=== PATIENT | female | born 1960 | race Caucasian/White ===

== ENCOUNTER 2020-03-31 11:42 | Inpatient (IN) | payer BC, MEDICAID ==
[~2020-03-31] VITALS: Ht 165.1 cm; Wt 52.6 kg
--- NOTE | 2020-03-31 11:45 | NUR ---
PT BIBRA FROM HOME C/O SOB THIS MORNING, PT IS AAOX3, NOTED RESPIRATORY DISTRESS O2 SAT AT 84% ON RA PER EMS, UPON ARRIVAL PT IS ON NB MASK SAT ON 98%, HOOKED TO POULTRY HATCHERY MANAGER, KEPT RESTED AND COMFORTABLE, WILL CONTINUE TO MONITOR.
--- NOTE | 2020-03-31 11:50 | NUR ---
SEEN AND EXAMINED BY .
--- NOTE | 2020-03-31 11:53 | NUR ---
RT AT BEDSIDE FOR ABG.
--- NOTE | 2020-03-31 11:55 | NUR ---
IV LINE ESTABLISHED BLOOD DRAWN AND SENT TO LAB.
--- NOTE | 2020-03-31 12:07 | NUR ---
COVID SWAB OBTAINED AND SENT TO LAB.
[2020-03-31 12:37] LABS: BASOPHILS % (AUTO) 0.6 % (0.0-2.0); EOSINOPHILS % (AUTO) 0.1 % (0.0-6.0); HEMATOCRIT 50 % (33-45); HEMOGLOBIN 16.8 g/dL (11.5-14.8); LYMPHOCYTES % (AUTO) 27.7 % (20.0-44.0); MEAN CORPUSCULAR HGB CONC 34 g/dl (31.0-36.0); MEAN CORPUSCULAR VOLUME 96 fL (82-100); MONOCYTES # (AUTO) 0.4 /CMM (0.1-1.30); MONOCYTES % (AUTO) 5.2 % (2.0-12.0); NEUTROPHILS # (AUTO) 4.8 /CMM (1.8-8.9); NEUTROPHILS % (AUTO) 66.4 % (43.0-81.0); PLATELET COUNT (AUTO) 149 /CMM (150-450); RED BLOOD CELL COUNT(AUTO) 5.18 MIL/uL (4.0-5.2); WHITE BLOOD COUNT (AUTO) 7.2 K/uL (4.3-11.0)
[2020-03-31 12:39] LABS: CALCIUM, SERUM 7.9 mg/dL (8.5-10.1); CARBON DIOXIDE 27 mmol/L (21-32); CHLORIDE 100 mmol/L (98-107); CREATININE 0.7 mg/dL (0.6-1.3); GLUCOSE 91 mg/dL (74-106); POTASSIUM 3.9 mmol/L (3.5-5.1); SODIUM SERUM 138 mmol/L (136-145); UREA NITROGEN, BLOOD 7 mg/dL (7-18)
[2020-03-31 12:50] LABS: ALANINE AMINOTRANSFERASE 48 U/L (12-78); ALBUMIN 3.4 g/dL (3.4-5.0); ALKALINE PHOSPHATASE 176 U/L (46-116); ASPARTATE AMINOTRANSFERASE 105 U/L (15-37); B-TYPE NATRIURETIC PEPTIDE 50 PG/ML (0-125); BILIRUBIN,TOTAL 0.6 mg/dL (0.2-1.0); TOTAL PROTEIN, SERUM 8.4 g/dL (6.4-8.2)
--- NOTE | 2020-03-31 12:56 | NUR ---
GOT BED 109
[2020-03-31] MEDS ORDERED: CEFEPIME 1 GM in IV D5W 50 ML IV ONE (13:00)
[2020-03-31] MEDS ORDERED: VANCOMYCIN 1 GM in IV D5W 250 ML IV ONE (13:00)
[2020-03-31 13:01] LABS: C-REACTIVE PROTEIN 0.4 mg/dL (0.0-0.9); CREATINE KINASE, TOTAL 72 U/L (26-192); FERRITIN 253 ng/mL (8-388)
[2020-03-31] MEDS ORDERED: Magnesium 1GM/D5W 100ML PREMIX 100 ML IV STA (13:09)
[2020-03-31] MEDS ORDERED: methylPREDNISolone SOD SUCC 125 MG/2ML VIAL IV ONE (13:30)
[2020-03-31] MEDS ORDERED: ALBUTEROL SULFATE 8 GM HFA.AER.AD IH STA (13:35)
[2020-03-31] MEDS ORDERED: methylPREDNISolone SOD SUCC 125 MG/2ML VIAL ONE (13:52)
[2020-03-31] MEDS ORDERED: Magnesium 1GM/D5W 100ML PREMIX 100 ML IV ONE (13:52)
--- NOTE | 2020-03-31 14:32 | NUR ---
REPORT GIVEN TO FELICIA PATEL FOR RADHA.
[2020-03-31 15:00] LABS: D-DIMER 1.9 mg/L(FEU (0.17-0.50)
--- NOTE | 2020-03-31 15:00 | NUR ---
tx to floor via [place] by gely johnson and china emt
[2020-03-31 15:13] LABS: BILIRUBIN,DIRECT 0.2 mg/dL (0.0-0.2)
--- NOTE | 2020-03-31 15:15 | NUR ---
pt received in room 109 in stable condition, wearing a mask. room air sat high 80s. placed on 4L via NC, 94%, no acute distress. respiration unlabored but tachypneic. pt also appears very anxious. a/ox4. skin warm dry. abd soft nontender, reports diarrhea. reports generalized body aches. bilateral pedal pulses 2+. placed on tele monitoring. oriented to room and call light. updated pt on plan of care and isolation procedures. bed locked in lowest position with HOB elevated. pt ambulated to restroom with steady gait.
--- NOTE | 2020-03-31 15:16 | NUR ---
pt reports loss of taste for 1 month, cough and malaise for 1 month, and recent unexplained bruising on her knees. she reports she has been drinking 1 bottle of wine per night. she is shaky and anxious.
[2020-03-31 16:00] VITALS: BP 161/78
[2020-03-31] MEDS ORDERED: LORAZEPAM 0.5 MG TABLET PO PRN (16:30)
[2020-03-31] MEDS ORDERED: methylPREDNISolone SOD SUCC 125 MG/2ML VIAL IV SCH (16:30)
[2020-03-31] MEDS ORDERED: HYDROXYCHLOROQUINE 200 MG TABLET PO SCH (17:00)
[2020-03-31] MEDS: LORAZEPAM 1 MG TABLET PO PRN ×2 (17:52→22:44)
[2020-03-31] MEDS: IPRATROPIUM BROMIDE 14 GM INHALER (or 12.9 GM) IH SCH ×2 (17:53→23:44)
[2020-03-31] MEDS: busPIRone 5 MG TABLET PO SCH (17:53)
[2020-03-31] MEDS: LEVOFLOXACIN (500MG) 500 MG TABLET PO SCH (17:53)
[2020-03-31] MEDS: NICOTINE PATCH (21MG) 21 MG PATCH.TD24 TD SCH (17:53)
--- NOTE | 2020-03-31 18:11 | NUR ---
pt reinforced in plan of care. ativan administered for anxiety and withdrawal prevention. ate 50% of dinner.
--- NOTE | 2020-03-31 19:06 | NUR ---
SALES FORECAST ANALYST: RECEIVED PATIENT Patient in bed, awake, appears anxious. Sinus rhythm in the Tele monitor, 97% on 4L NC, denies SOB. Contact/Droplet isolation, pending Covid-19 result. Maintained safety.
[2020-03-31 20:00] VITALS: BP 155/82
[2020-03-31 20:20] VITALS: BP 155/82
[2020-03-31] MEDS: methylPREDNISolone SOD SUCC 125 MG/2ML VIAL IV SCH (21:07)
[2020-03-31] MEDS: TRAZODONE 50 MG TABLET PO SCH (21:07)
[2020-03-31] MEDS: ALBUTEROL FS 2.5 MG/3 ML VIAL.NEB NEB SCH (23:50)
[2020-04-01] VITALS (9 sets, daily range): BP systolic 136–147; BP diastolic 74–89
[2020-04-01] MEDS: LORAZEPAM 1 MG TABLET PO PRN ×3 (05:40→19:56)
[2020-04-01] MEDS: methylPREDNISolone SOD SUCC 125 MG/2ML VIAL IV SCH ×3 (05:40→20:33)
--- NOTE | 2020-04-01 06:05 | NUR ---
PARKING REGULATION ENFORCEMENT OFFICER: END OF SHIFT REPORT Patient in bed, Oxygen sat 99% on 4L NC, intermittent coughing, denies SOB. PO Antibiotic as scheduled, afebrile overnight. Sinus rhythm in the Tele monitor. Anxiety managed with PRN Ativan. Contact/Droplet isolation. Fall precaution maintained. Will endorse to oncoming RN.
[2020-04-01 06:28] LABS: BASOPHILS % (AUTO) 0.1 % (0.0-2.0); EOSINOPHILS % (AUTO) 0.6 % (0.0-6.0); HEMATOCRIT 46 % (33-45); HEMOGLOBIN 15.3 g/dL (11.5-14.8); LYMPHOCYTES # (AUTO) 0.4 /CMM (0.8-4.8); LYMPHOCYTES % (AUTO) 13.8 % (20.0-44.0); MEAN CORPUSCULAR HGB CONC 33 g/dl (31.0-36.0); MEAN CORPUSCULAR VOLUME 98 fL (82-100); MONOCYTES # (AUTO) 0.1 /CMM (0.1-1.30); MONOCYTES % (AUTO) 3.7 % (2.0-12.0); NEUTROPHILS # (AUTO) 2.3 /CMM (1.8-8.9); NEUTROPHILS % (AUTO) 81.8 % (43.0-81.0); PLATELET COUNT (AUTO) 103 /CMM (150-450); RED BLOOD CELL COUNT(AUTO) 4.72 MIL/uL (4.0-5.2); WHITE BLOOD COUNT (AUTO) 2.8 K/uL (4.3-11.0)
[2020-04-01 06:44] LABS: CALCIUM, SERUM 8.4 mg/dL (8.5-10.1); CREATININE 0.7 mg/dL (0.6-1.3); POTASSIUM 4.3 mmol/L (3.5-5.1)
--- NOTE | 2020-04-01 07:15 | NUR ---
DIRECTOR REPORT OPENING NOTE Received patient asleep comfortably in bed no signs of distress. On NC 4L tolerating well. HOB elevated. Tele reading SR. Has LFA 20g. Pedning result for Covid. Safety measures reinforced. Call light within reach. Bed locked and on lowest. Will cont to monitor.
[2020-04-01] MEDS: busPIRone 5 MG TABLET PO SCH ×3 (08:19→16:29)
[2020-04-01] MEDS: NICOTINE PATCH (21MG) 21 MG PATCH.TD24 TD SCH (08:19)
[2020-04-01 08:31] LABS: C-REACTIVE PROTEIN 0.5 mg/dL (0.0-0.9)
[2020-04-01] MEDS: ALBUTEROL FS 2.5 MG/3 ML VIAL.NEB NEB SCH ×2 (08:49→15:13)
[2020-04-01] MEDS: IPRATROPIUM BROMIDE 14 GM INHALER (or 12.9 GM) IH SCH ×2 (08:49→15:13)
[2020-04-01] MEDS ORDERED: THIAMINE HCL 100 MG TABLET PO SCH (09:00)
[2020-04-01] MEDS ORDERED: FOLIC ACID 1 MG TABLET PO SCH (09:00)
[2020-04-01] MEDS ORDERED: SERTRALINE HCL 50 MG TABLET PO SCH (09:00)
[2020-04-01] MEDS ORDERED: UMEC1BLS INH (10:26)
[2020-04-01] MEDS ORDERED: SERT100T12 PO (10:26)
[2020-04-01] MEDS ORDERED: TRAZ-252 PO (10:26)
[2020-04-01] MEDS ORDERED: BUSP5TAB3 PO (10:26)
[2020-04-01] MEDS ORDERED: NALT380S2 IM (10:26)
[2020-04-01] MEDS ORDERED: DOCU100C36 PO (10:26)
--- NOTE | 2020-04-01 15:00 | NUR ---
FORENSIC BALLISTICS EXPERT NOTE Gave report to FELICIA Tatum for ryan.
[2020-04-01] MEDS: LEVOFLOXACIN (500MG) 500 MG TABLET PO SCH (16:29)
[2020-04-01] MEDS ORDERED: HYDROXYCHLOROQUINE 200 MG TABLET PO SCH (17:00)
--- NOTE | 2020-04-01 18:38 | NUR ---
MANAGER ENGAGEMENT NOTES PATIENT AWAKE IN BED, NO RESPIRATORY DISTRESS, NO C/O PAIN AT THIS TIME. PATIENT ON O2 AT 4L VIA NASAL CANULA. SKIN WARM TO TOUCH, IV ACCESS SITE INTACT AND PATENT. SAFETY PRECAUTIONS IN PLACE. BED ON LOWEST LOCKED POSITION, CALL LIGHT WITHIN REACH. WILL ENDORSE TO ONCOMING NURSE.
--- NOTE | 2020-04-01 19:54 | NUR ---
TELE/RN OPENING NOTES RECEIVED PATIENT IN BED, AWAKE, ALERT X3, ABLE TO VERBALIZE NEEDS, REPORTED WANT TO HAVE MEDICINE TO MAKE HER CALM. NEEDED ATIVAN 1 MG PO TO BE GIVEN, OBSERVE ABLE TO WALK TO BATHROOM AND BELONGINGS WITHIN REACH. WILL MONITOR, RECEIVED ENDORSEMENT FROM AM RN FOR RADHA, WILL MONITOR.
--- NOTE | 2020-04-01 21:00 | NUR ---
TELE/RN NOTES RECEIVED A CALL FROM HELIO KENNEY OF [facility] AND HAVE A BED FOR PATIENT AT [facility]; FOR TRANSFER BEFORE MIDNIGHT TODAY. PATIENT WAS INFORMED AND MADE AWARE, HAVE SIGNED TRANSFER CONSENT AND BELONGINGS CHECK, SKIN INTACT AND REFUSED TO HAVE BIRTHMARK PHOTO TAKEN ON LEFT ARM. PROVIDED FORM AND AWAITING FOR INTERPRETATIVE DANCER VIA AMBULANCE,
--- NOTE | 2020-04-01 21:35 | NUR ---
TELE/RN NOTES REPORT GIVEN TO FELICIA FELIZOF [facility] IN ROOM 201 B .
[2020-04-01] MEDS: TRAZODONE 50 MG TABLET PO SCH (22:00)
--- NOTE | 2020-04-01 22:15 | NUR ---
md power order for transfer and to discharge
--- NOTE | 2020-04-01 22:20 | NUR ---
TELE/RN NOTES tRANSFER SAP BW CONSULTANT FROM [facility], PATIENT TRANSFER TO [facility] VIA [facility] ACCOMPANIED BY 2 EMT, BELONGINGS SENT, TELE BOX REMOVED, TRANSFER FORM PROVIDED. FACE SHEET GIVEN. VITAL SIGNS CHECK WNL, PATIENT ON ROOM AIR WITH O2 SAT OF 94% REFUSE OXYGEN . REQUESTING TO SMOKE AND WAS INFORMED THAT PATIENT WILL NEED ORDER AND TO FOLLOW UP ON NURSE AT THE [facility]. DR NAZARIO WILL BE THE MD FOR CONTINUITY OF CARE.
== END 2020-04-01 22:30 | disposition short-term general hospital (02) | DRG 139 ==
LOC: ER 11:56 → TELE1 14:38
PROVIDERS: ADMIT Internal Medicine; ATTEND Internal Medicine
DX: J15.9 Unspecified bacterial pneumonia (principal); J96.21 Acute and chronic respiratory failure with hypoxia; E87.2 Acidosis; J44.0 Chronic obstructive pulmonary disease with (acute) lower respiratory infection; J44.1 Chronic obstructive pulmonary disease with (acute) exacerbation; F17.200 Nicotine dependence, unspecified, uncomplicated; F32.9 Major depressive disorder, single episode, unspecified; F10.20 Alcohol dependence, uncomplicated; Z90.710 Acquired absence of both cervix and uterus
CPT/HCPCS: 36415; 71045-TC; 80048-TC; 80053-TC; 82248-TC; 82550-TC; 82728-TC; 83605-TC; 83615-TC; 83880; 84484-TC; 85025-TC; 85378-TC; 85730-TC; 86140-TC; 87040-TC; 87081-TC; G0378; J0692; J2930; J3370; J3475; J7060